=== PATIENT | male | born 2000 | race Caucasian/White ===

== ENCOUNTER 2019-06-25 20:03 | Emergency (ER) | payer BC ==
[~2019-06-25] VITALS: Ht 175.3 cm; Wt 75.0 kg
--- NOTE | 2019-06-25 20:25 | PHYS DOC ---
Past Medical History Past Medical History: Anxiety Past Surgical History: No Surgical History Smoking Status: Never Smoker Alcohol Use: None Adult General Chief Complaint Chief Complaint: ANXIETY/PANIC ATTACK HPI HPI Patient is a 19 year old male who is brought to the ER secondary to reported syncopal episode with decreased level of responsiveness afterwards. The patient reportedly was at his girlfriend's house and went to get into his car and while in the car he suddenly became less responsive. He appeared to be staring off into space and then his eyes went closed and he began scratching in his face. The girlfriend states that he appeared to be rather stiff but did not display apical seizure-like activity. The patient does not recall events. He did not soil himself and there is no report of him being post ictal. Patient states that this has happened to him previously approximately 3 or 4 times over the past couple of years and he has had tilt table testing, echocardiogram, CT scans and no definitive diagnosis has been found. Patient states that he does have anxiety and he felt somewhat anxious today but not excessively so. Really denies head pain, chest pain, shortness of breath and states that he feels rather normal. Review of Systems Review of Systems All other ROS is negative unless otherwise stated in HPI Current Medications Current Medications Current Medications Medications (Trade) Dose Ordered Sig/Nena Start Time Stop Time Status Last Admin Dose Admin Sodium Chloride 1,000 ml @ 1,000 mls/hr 1X ONCE 06/25/19 20:30 06/25/19 21:29 06/25/19 20:42 1,000 MLS/HR Allergies Allergies Allergies Coded Allergies Type Severity Reaction Last Updated Verified No Known Drug Allergies 06/25/19 No Physical Exam Physical Exam See above Constitutional: Well developed, well nourished, no acute distress, non-toxic appearance. [] HENT: Normocephalic, atraumatic, bilateral external ears normal, oropharynx moist, no oral exudates, nose normal. [] Eyes: PERRLA, EOMI, conjunctiva normal, no discharge. [] Neck: Normal range of motion, no tenderness, supple, no stridor. [] Cardiovascular:Heart rate regular rhythm, no murmur [] Lungs & Thorax: Bilateral breath sounds clear to auscultation [] Abdomen: Bowel sounds normal, soft, no tenderness, no masses, no pulsatile masses. [] Skin: Warm, dry, no erythema, no rash. [] Back: No tenderness, no CVA tenderness. [] Extremities: No tenderness, no cyanosis, no clubbing, ROM intact, no edema. [] Neurologic: Alert and oriented X 3, normal motor function, normal sensory function, no focal deficits noted. [] Psychologic: Affect normal, judgement normal, mood normal. [] Current Patient Data Vital Signs Vital Signs Date Time Temp Pulse Resp B/P (MAP) Pulse Ox O2 Delivery O2 Flow Rate FiO2 06/25/19 20:03 98.9 98 18 130/87 (101) 97 Room Air 98.9 Lab Values Laboratory Tests Test 06/25/19 20:30 White Blood Count 10.6 x10^3/uL (4.0-11.0) Red Blood Count 5.08 x10^6/uL (4.30-5.70) Hemoglobin 15.0 g/dL (13.0-17.5) Hematocrit 43.9 % (39.0-53.0) Mean Corpuscular Volume 87 fL (79-100) Mean Corpuscular Hemoglobin 30 pg (25-35) Mean Corpuscular Hemoglobin Concent 34 g/dL (31-37) Red Cell Distribution Width 12.7 % (11.5-14.5) Platelet Count 292 x10^3/uL (140-400) Neutrophils (%) (Auto) 66 % (31-73) Lymphocytes (%) (Auto) 24 % (24-48) Monocytes (%) (Auto) 7 % (0-9) Eosinophils (%) (Auto) 2 % (0-3) Basophils (%) (Auto) 1 % (0-3) Neutrophils # (Auto) 7.0 x10^3/uL (1.8-7.7) Lymphocytes # (Auto) 2.5 x10^3/uL (1.0-4.8) Monocytes # (Auto) 0.8 x10^3/uL (0.0-1.1) Eosinophils # (Auto) 0.2 x10^3/uL (0.0-0.7) Basophils # (Auto) 0.1 x10^3/uL (0.0-0.2) Sodium Level 143 mmol/L (136-145) Potassium Level 4.0 mmol/L (3.5-5.1) Chloride Level 106 mmol/L (98-107) Carbon Dioxide Level 26 mmol/L (21-32) Anion Gap 11 (6-14) Blood Urea Nitrogen 11 mg/dL (8-26) Creatinine 0.9 mg/dL (0.7-1.3) Estimated GFR (Cockcroft-Gault) 106.5 BUN/Creatinine Ratio 12 (6-20) Glucose Level 98 mg/dL (70-99) Calcium Level 9.1 mg/dL (8.5-10.1) Total Bilirubin 0.2 mg/dL (0.2-1.0) Aspartate Amino Transferase (AST) 25 U/L (15-37) Alanine Aminotransferase (ALT) 47 U/L (16-63) Alkaline Phosphatase 116 U/L (46-116) Troponin I Quantitative < 0.017 ng/mL (0.000-0.055) Total Protein 7.6 g/dL (6.4-8.2) Albumin 4.1 g/dL (3.4-5.0) Albumin/Globulin Ratio 1.2 (1.0-1.7) Thyroid Stimulating Hormone (TSH) 2.131 uIU/mL (0.358-3.74) Free Thyroxine 1.14 ng/dL (0.76-1.46) Laboratory Tests 06/25/19 20:30 Laboratory Tests 06/25/19 20:30 EKG EKG [] Radiology/Procedures Radiology/Procedures Exam: Chest 2 views INDICATION: 50 TECHNIQUE: Frontal and lateral views the chest Comparisons: 06/25/2019 FINDINGS: The cardiomediastinal silhouette and pulmonary vessels are within normal limits. The lung and pleural spaces are clear. IMPRESSION: No acute cardiopulmonary process. CT Head W/O Contrast: History: Syncope Comparison: none Axial images were obtained without contrast. The shafer and white matter appears normal and symmetrical for the patients age. There is no mass effect, extraaxial fluid collections or hydrocephalus. There is no gross bleed. There is no focal loss of shafer-white matter distinction to suggest acute ischemia, i.e. stroke. Impression: No acute findings.[] Course & Med Decision Making Course & Med Decision Making Pertinent Labs and Imaging studies reviewed. (See chart for details) 2024: Patient's examination is unremarkable. Given his symptoms I will go ahead and initiate syncopal at workup including CT scan, chest x-ray, EKG, labs and ur inalysis with UDS. He will likely be referred to cardiology and/or neurology. 2128: Patient's workup is complete at this time and is rather unremarkable. He states that he has seen a healthcare administration internship in the past who performed the tilt table test and echocardiogram. At this time the patient is instructed to establish care with a primary care physician and I will also refer him to neurology for further evaluation if he would like. Urinalysis has not been collected at this time; patient denies drug use. Dragon Disclaimer Dragon Disclaimer This electronic medical record was generated, in whole or in part, using a voice recognition dictation system. Departure Departure Impression: Primary Impression: Syncope Disposition: 01 HOME, SELF-CARE Condition: STABLE Referrals: LLOYD BRITT MD Call for follow up appointment Additional Instructions: Please establish care with a primary care doctor as well. JUAN MESA DO Jun 25, 2019 20:25
[2019-06-25] MEDS ORDERED: IV NORMAL SALINE 1000ML BAG 1,000 ML IV ONE (20:30)
[2019-06-25 20:37] LABS: BASO # 0.1 x10^3/uL (0.0-0.2); BASO % 1 % (0-3); EOS # 0.2 x10^3/uL (0.0-0.7); EOS % 2 % (0-3); HEMATOCRIT 43.9 % (39.0-53.0); LYMPH # 2.5 x10^3/uL (1.0-4.8); LYMPH % 24 % (24-48); MEAN CORPUSCULAR HEMOGLOBIN 30 pg (25-35); MEAN CORPUSCULAR HGB CONC 34 g/dL (31-37); MEAN CORPUSCULAR VOLUME 87 fL (79-100); MONO # 0.8 x10^3/uL (0.0-1.1); MONO % 7 % (0-9); NEUT % 66 % (31-73); PLATELET COUNT 292 x10^3/uL (140-400); RED BLOOD COUNT 5.08 x10^6/uL (4.30-5.70); RED CELL DISTRIBUTION WIDTH 12.7 % (11.5-14.5); WHITE BLOOD COUNT 10.6 x10^3/uL (4.0-11.0)
[2019-06-25 20:49] LABS: CALCIUM 9.1 mg/dL (8.5-10.1); CREATININE 0.9 mg/dL (0.7-1.3); GFR 106.5
--- NOTE | 2019-06-25 20:50 | RAD ---
CT Head W/O Contrast: History: Syncope Comparison: none Axial images were obtained without contrast. The shafer and white matter appears normal and symmetrical for the patients age. There is no mass effect, extraaxial fluid collections or hydrocephalus. There is no gross bleed. There is no focal loss of shafer-white matter distinction to suggest acute ischemia, i.e. stroke. Impression: No acute findings. RS Compliance Statement: One or more of the following individualized dose reduction techniques were utilized for this examination: 1. Automated exposure control 2. Adjustment of the mA and/or kV according to patient size 3. Use of iterative reconstruction technique Electronically signed by: Gary Vasquez III, MD (06/25/2019 8:47 PM) [id number]
[2019-06-25 20:54] LABS: ALBUMIN 4.1 g/dL (3.4-5.0); ALBUMIN/GLOBULIN RATIO 1.2 (1.0-1.7); TOTAL BILIRUBIN 0.2 mg/dL (0.2-1.0); TOTAL PROTEIN 7.6 g/dL (6.4-8.2)
[2019-06-25 21:02] LABS: FREE T4 1.14 ng/dL (0.76-1.46); THYROID STIM HORMONE (TSH) 2.131 uIU/mL (0.358-3.74)
--- NOTE | 2019-06-25 21:12 | RAD ---
Exam: Chest 2 views INDICATION: 50 TECHNIQUE: Frontal and lateral views the chest Comparisons: 06/25/2019 FINDINGS: The cardiomediastinal silhouette and pulmonary vessels are within normal limits. The lung and pleural spaces are clear. IMPRESSION: No acute cardiopulmonary process. Electronically signed by: Nereyda Clark MD (06/25/2019 9:10 PM) [id number]
[2019-06-25 21:33] VITALS: BP 143/71
--- NOTE | 2019-06-26 07:03 | EKG ---
[facility] [address] [place] [address] Test Date: 2019-06-25 Test Time: 20:29:42 Pat Name: BUSHRA SAUCEDO Department: Room: Gender: M Ice Hockey Coach: : 2000 Requested By: JUAN MESA Order Number: [id number] Reading MD: Measurements Intervals [place] Rate: 94 P: 53 WA: 136 QRS: 46 QRSD: 80 T: 36 QT: 334 QTc: 418 Interpretive Statements SINUS RHYTHM QRS(T) CONTOUR ABNORMALITY CONSIDER ANTEROSEPTAL MYOCARDIAL DAMAGE CONSIDER INFERIOR MYOCARDIAL DAMAGE POSSIBLY ABNORMAL ECG RI6.01 No previous ECG available for comparison
== END 2019-06-25 21:55 | disposition home or self-care (01) ==
LOC: ER 20:03
DX: R55 Syncope and collapse (principal); F41.9 Anxiety disorder, unspecified
CPT/HCPCS: 36415; 70450; 71046; 80053; 84439; 84443; 84484; 85025; 93005; 96360; 99285; J7030